=== PATIENT | female | born 1995 | race Caucasian/White ===

== ENCOUNTER 2019-09-03 14:02 | Emergency (ER) | payer BC, SELFPAY ==
--- NOTE | 2019-09-03 14:08 | ED.GENADULT ---
HPI - General Adult General Chief complaint: Extremity Injury, Upper Stated complaint: left hand injury Time Seen by Provider: 09/03/19 14:08 Source: patient Mode of arrival: ambulatory Limitations: no limitations History of Present Illness HPI narrative: 23-year-old female patient presents to the [facility] with complaints of a laceration to her left hand. Patient states that she cut the web of her hand between her thumb and her index finger on her left hand last night approximately 9 PM with a knife. Patient states that she was cutting and avocado and accidentally cut her hand. Patient unaware of when her last tetanus shot was. Patient denies any trouble grasping or bending her fingers or using her hand. Patient states that she has been cleaning it as well as putting first-aid ointment on it. Related Data Home Medications Medication Instructions Recorded Confirmed Klonopin 09/03/19 Sprintec (28) 09/03/19 Zoloft 09/03/19 Allergies Allergy/AdvReac Type Severity Reaction Status Date / Time No Known Allergies Allergy Verified 09/03/19 14:17 Review of Systems Review of Systems: Narrative: CONSTITUTIONAL: Denies fever, chills, or sweats. EYES: Denies visual changes, redness, or discharge. ENT: Denies rhinorrhea, congestion, sore throat, or otalgia. CARDIOVASCULAR: Denies chest pain, palpitations, or edema. RESPIRATORY: Denies cough or dyspnea. GASTROINTESTINAL: Denies abdominal pain, nausea, vomiting, or diarrhea. GENITOURINARY: Denies dysuria or hematuria. SKIN: Denies rash or itching. Positive laceration to left hand MUSCULOSKELETAL: Denies back pain, joint pain, or myalgia. NEUROLOGIC: Denies headache, numbness, or weakness. PSYCHIATRIC: Denies anxiety or depression. PMFSH Social History Social History Gender identity (if verbalized by the patient): Female Comments At the time of my signature I agree with nursing past medical history, surgical, social, and family history. There is no relevant family history pertinent to the presenting complaint. Exam Narrative: Exam Narrative: GENERAL: Well-appearing, well-nourished, and in no acute distress. HEAD: Normocephalic, atraumatic. EYES: PERRLA and EOMI. ENT: Nares clear, no rhinorrhea or epistaxis. Mucous membranes moist. NECK: Supple. No lymphadenopathy CHEST: Clear to auscultation. No respiratory distress. HEART: Regular rate and rhythm. No murmur heard. Normal peripheral pulses. ABDOMEN: Soft, nontender, nondistended, normal active bowel sounds. EXTREMITIES: Normal range of motion. No edema. SKIN: Warm, dry, no rash. Patient has approximately 1 cm laceration over the web of her hand between her thumb and index finger on her left hand. The laceration is pretty superficial does not appear to be very deep. There does not appear to be any foreign body or underlying injury. Patient does have excellent range of motion to the hand and fingers. NEURO: No focal deficits. Alert and oriented x3. Course Vital Signs Vital signs: Vital Signs Temperature 36.7 C 09/03/19 14:09 Pulse Rate 90 09/03/19 14:09 Respiratory Rate 18 09/03/19 14:09 Blood Pressure 172/97 H 09/03/19 14:09 Pulse Oximetry 100 09/03/19 14:09 Temperature 36.7 C 09/03/19 14:09 Pulse Rate 90 09/03/19 14:09 Respiratory Rate 18 09/03/19 14:09 Blood Pressure 172/97 H 09/03/19 14:09 Pulse Oximetry 100 09/03/19 14:09 Vital signs reviewed. The patient has been informed that they may have pre-hypertension or Hypertension based on a BP reading in the department. I recommend that the patient call the primary care provider listed on their discharge instructions or a physician of their choice this week to arrange follow up for further evaluation of possible pre-hypertension or Hypertension Procedures Laceration Laceration 1: Date: 09/03/19 Time: 14:28 Site: upper extremity Side (If a
[2019-09-03 14:09] VITALS: BP 172/97; PULSE 90; RESP 18; TEMP 36.7; O2SAT 100
[2019-09-03] MEDS: TETANUS/DIPHTHERIA TOXOIDS ADSORB 0.5 ML VIAL (*BKC) IM (14:26)
== END 2019-09-03 14:49 | disposition home or self-care (01) ==
PROVIDERS: Emergency Provider Nurse Practitioner Family
DX: S61.412A Laceration without foreign body of left hand, initial encounter (principal); Z23 Encounter for immunization
CPT/HCPCS: 12001; 90471; 90714; 99212; G0463